=== PATIENT | male | born 1955 | race Hispanic/Latino ===

== ENCOUNTER 2016-08-11 08:52 | Outpatient (CLI) | payer BC ==
[2016-08-11 10:03] LABS: ALT (SGPT) 47 U/L (0-55); AST (SGOT) 44 U/L (5-34); Alkaline Phosphatase 109 U/L (40-150); Anion Gap 15 mmol/L (10-20); BUN (Urea Nitrogen) 12 mg/dL (8.4-25.7); Bilirubin, Total 0.7 mg/dL (0.2-1.2); Calc. Creatinine Clearance 0 mL/min (70-130); Calcium 9.4 mg/dL (7.8-10.44); Carbon Dioxide 26 mmol/L (22-29); Chloride 104 mmol/L (98-107); Estimated GFR-MDRD 86; Globulin 3.3 g/dL (2.4-3.5); LDL Cholesterol, Calculated 93 mg/dL; Protein, Total 7.4 g/dL (6.0-8.3)
[2016-08-11 10:30] LABS: Hemoglobin A1c 5.5 % (4.0-6.0)
[2016-08-11 18:11] LABS: Free T3 2.67 pg/mL (1.71-3.71)
[2016-08-11 18:12] LABS: Insulin 18.6 uU/mL (3.0-25.0)
== END 2016-08-11 08:53 | disposition home or self-care (01) ==
LOC: BURLAB 08:52
PROVIDERS: ATTEND Internal Medicine Endocrinology, Diabetes & Metabolism
DX: E78.1 Pure hyperglyceridemia (principal); E88.81 Metabolic syndrome and other insulin resistance; E66.3 Overweight; E55.9 Vitamin D deficiency, unspecified
CPT/HCPCS: 36415; 80053; 80061; 82306; 83036; 83525; 84439; 84443; 84481

== ENCOUNTER 2016-12-07 08:32 | Outpatient (CLI) | payer BC ==
[2016-12-07 09:33] LABS: Hemoglobin A1c 5.4 % (4.0-6.0)
[2016-12-07 09:34] LABS: ALT (SGPT) 36 U/L (8-55); AST (SGOT) 33 U/L (5-34); Alkaline Phosphatase 93 U/L (40-150); Anion Gap 16 mmol/L (10-20); BUN (Urea Nitrogen) 15 mg/dL (8.4-25.7); Bilirubin, Total 0.6 mg/dL (0.2-1.2); Calc. Creatinine Clearance 0 mL/min (70-130); Calcium 9.3 mg/dL (7.8-10.44); Cardiac Risk 3.7 (Less than 4.5); Chloride 104 mmol/L (98-107); Cholesterol 168 mg/dl (< 200 Desired); Estimated GFR-MDRD 72; Globulin 3.7 g/dL (2.4-3.5); Glucose 103 mg/dL (70-105); HDL Cholesterol 46 mg/dL (>60 Neg Risk); LDL Cholesterol, Calculated 94 mg/dL; Potassium 4.3 mmol/L (3.5-5.1); Protein, Total 7.7 g/dL (6.0-8.3); Sodium 140 mmol/L (136-145); Triglycerides 138 mg/dL (Less than 150)
[2016-12-07 11:25] LABS: Carbon Dioxide 24 mmol/L (22-29)
[2016-12-07 12:02] LABS: Free T4 (Free Thyroxine) 1.07 ng/dL (0.70-1.48); Thyroid Stimulating Hormone 1.3787 uIU/mL (0.35-4.94); Vitamin D, 25 Hydroxy 57.7 ng/ml (> 30.0)
[2016-12-07 18:17] LABS: Insulin 10.3 uU/mL (3.0-25.0)
== END 2016-12-07 08:33 | disposition home or self-care (01) ==
LOC: BURLAB 08:32
PROVIDERS: ATTEND Internal Medicine Endocrinology, Diabetes & Metabolism
DX: E55.9 Vitamin D deficiency, unspecified (principal); E78.1 Pure hyperglyceridemia; E88.81 Metabolic syndrome and other insulin resistance; E66.3 Overweight; R53.83 Other fatigue
CPT/HCPCS: 36415; 80053; 80061; 82306; 83036; 83525; 84439; 84443; 84481